=== PATIENT | female | born 1980 | race Caucasian/White ===

== ENCOUNTER 2019-02-19 18:53 | Emergency (ER) | payer OTHER ==
[~2019-02-19] VITALS: Ht 160 cm; Wt 101.3 kg
--- NOTE | 2019-02-19 20:05 | NUR ---
REPORT FROM BREAK ALYSIA PINEDA, PT RESTING IN GURNEY, TEARFUL AT SITUATION. MD TO CONSULT PLASTIC SURGERY
[2019-02-19] MEDS ORDERED: HYDROmorphone 2 MG/ML, 1ML IM PRN (20:30)
[2019-02-19] MEDS ORDERED: HYDROmorphone 2 MG/ML, 1ML ONE (20:31)
[2019-02-19] MEDS ORDERED: LIDOCAINE 1%-EPI 1:100K, 20ML ONE (20:38)
--- NOTE | 2019-02-19 20:41 | NUR ---
PLASTIC SURGEON AT BEDSIDE TO SUTURE LAC, PT MEDICATED FOR PAIN PRIOR TO PROCEDURE
[2019-02-19] MEDS ORDERED: BACITRACIN ZINC OINT 500U/GM, 0.9 GM ONE (21:19)
[2019-02-19 22:02] VITALS: BP 124/82
== END 2019-02-19 22:05 | disposition home or self-care (01) ==
LOC: ED 21:39
DX: S01.511A Laceration without foreign body of lip, initial encounter (principal); F10.229 Alcohol dependence with intoxication, unspecified; E11.9 Type 2 diabetes mellitus without complications; Z88.1 Allergy status to other antibiotic agents; Z88.8 Allergy status to other drugs, medicaments and biological substances; W01.0XXA Fall on same level from slipping, tripping and stumbling without subsequent striking against object, initial encounter; Y93.89 Activity, other specified; Y92.410 Unspecified street and highway as the place of occurrence of the external cause; Y99.8 Other external cause status
CPT/HCPCS: 96372; 99283; J1170